=== PATIENT | male | born 1960 | race Caucasian/White ===

== ENCOUNTER 2023-04-24 10:00 | Outpatient (AMB) | payer BC, SELFPAY ==
--- NOTE | 2023-04-24 10:05 | A.OFFVIS_ITS ---
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 Pt had a home sleep study done 3 years ago, And was told that he had severe degree of sleep apnea, the AHI was more than 100/hr. He is having difficulty maintaining sleep, non refreshing sleep, lack of energy and daytime sleepiness. He gained about 20 lb since the last sleep study. Sleep questionnaire: Have you ever been diagnosed with a sleep disorder? Yes. Have you ever had a sleep study in the past? Yes, home sleep Have you ever been treated for a sleep disorder? No. Do you take medications for a sleep disorder? No. Do you snore? Yes. Do you wake up gasping at night? No. Do you have episodes of apneas? Yes. If yes, are they witnessed? Yes. Do you have episodes of nocturnal chest pain or dyspnea? No. Do you have difficulty initiating sleep? No. Do you have difficulty maintaining sleep? Yes. Do you wake up tired? Yes. Do you have headaches upon awakening? Yes. Do you wake up with dry mouth or throat? Yes. Do you have GERD? No. Do you have nocturia? Yes. Do you have nocturnal leg cramps? Once in a while. Do you have symptoms of restless legs? No. Do you act out your dreams? No. Sleep hygiene questionnaire: What is your usual sleep routine? Usual bedtime is at 10 pm; Usual wake up time is at 8-10 pm. Do you take naps? No. Is your sleep environment cool, dark, and quiet? Yes. Do you exercise? No. Do you take caffeine or other stimulants? Coffee in the morning, and sometimes evening. Do you use electronics in bed? Yes. What is your work schedule? N/A. Hypersomnolence questionnaire: Do you have daytime tiredness or fatigue? Yes. Do you easily fall asleep when inactive? No. Have you ever had episodes of sudden weakness? No. Have you ever had episodes of sudden weakness associated with strong emotions? No. PFSH Surgical History (Updated 04/24/23 @ 10:12 by Linda Arevalo) H/O ankle fusion Social History (Updated 04/24/23 @ 10:13 by Linda Arevalo) Alcohol intake: never Patient Tobacco Use Status: Never used Tobacco Substance Use Type: Marijuana Review of Systems Const All systems reviewed & are unremarkable except as noted in HPI and below Physical Exam Vital Signs: Last Vital Signs Pulse 66 04/24/23 10:07 BP 124/66 04/24/23 10:07 Pulse Ox 96 04/24/23 10:07 Oxygen Delivery Method Room Air 04/24/23 10:07 BMI result Body Mass Index 45.8 Const General: cooperative Nutritional Appearance: obese Orientation/consciousness: patient oriented x3 Neck Neck: Yes full ROM and Yes supple Resp Effort & Inspection: normal respiratory effort and able to speak in complete sentences Neuro General: patient oriented x3, gait normal and moves all extremities Cranial nerves: Yes CN's II-XII intact bilaterally Cognition (Neuro): normal cognition Gait exam (Neuro): Normal gait present Motor exam (neuro): 5/5 motor strength present throughout, Pronator motor function not present and no tremor noted Psych Appearance: grossly normal Mental Status: mental status grossly normal Speech and movement: Normal speech and movement present Affect: normal affect Attitude: cooperative Assessment & Plan Assessment & Plan (1) Obesity, Class III, BMI 40-49.9 (morbid obesity): Code(s): E66.01 - Morbid (severe) obesity due to excess calories (2) Sleep apnea: Comment: Severe degree of sleep apnea. AHI was more than 100/hr. Code(s): G47.30 - Sleep apnea, unspecified Plan Pt is advised to undergo in lab sleep study to assess for sleep apnea. Will f/u with pt after study to discuss results and appropriate treatment options. Sleep hygiene education provided, limit caffeine intake in the evening and electronic use before bedtime. Pt to call with any worsening concerns or questions. Orders: Orders RT PSG in-lab sleep study 04/24/23 E66.01 - Morbid (severe) obesity due to excess calories, G47.30 - Sleep apnea, unspecified Coding Level of Care Code New Pt Level 3 (68783) Diagnoses Obesity, Class III, BMI 40-49.9 (morbid obesity) E66.01 Sleep apnea G47.30
[2023-04-24 10:07] VITALS: BP 124/66; PULSE 66; O2SAT 96; BMI 45.8
== END 2023-04-24 10:35 | disposition home or self-care (01) ==
PROVIDERS: PCP Physician Assistant Medical; Visit Provider Nurse Practitioner Family
DX: E66.01 Morbid (severe) obesity due to excess calories (principal); G47.30 Sleep apnea, unspecified
CPT/HCPCS: 99203

== ENCOUNTER → 2023-04-24 10:00 | Outpatient (BNVA) | payer BC, SELFPAY | PROVIDERS: PCP Physician Assistant Medical; Visit Provider Nurse Practitioner Family ==

== ENCOUNTER → 2023-05-24 20:30 | Outpatient (REF) | payer MEDICARE, BC, SELFPAY | LOC: HO.SL 20:30 | PROVIDERS: Visit Provider Nurse Practitioner Family | DX: G47.30 Sleep apnea, unspecified (principal); E66.01 Morbid (severe) obesity due to excess calories | CPT/HCPCS: 95810 ==

== ENCOUNTER → 2023-05-25 04:02 | Outpatient (BNV) | payer MEDICARE, BC, SELFPAY | PROVIDERS: Visit Provider Psychiatry & Neurology Neurology | DX: G47.33 Obstructive sleep apnea (adult) (pediatric) (principal) | CPT/HCPCS: 95810 ==

== ENCOUNTER 2024-06-05 12:58 | Outpatient (AMB) | payer MEDICARE, BC, SELFPAY ==
--- NOTE | 2024-06-05 13:06 | MHC.OFFVIS ---
Vital Signs 06/05/24 13:10 Height 6 ft BP 124/82 Blood Pressure Location Lt brachial Position Sitting Intake Visit Reasons: Follow Up Intake Note: Patient last seen 04/2023. Patient presents for a f/u for FATIMAH. Has not been using CPAP, would like to start the process to start using it again. 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 HST 3 years ago, Apr 2023: severe degree of sleep apnea, the AHI >100/hr. He is having difficulty maintaining sleep, non refreshing sleep, lack of energy and daytime sleepiness. 09/2023 - Feb 2024 >4 hours 52/90: Total average 2 hours 32 min Autopap: 8cmH20 - 5cmH20, after titration Max leaks 15.8 - 74.1 : Pressure support 5cmH20 and AHI 27.4 PCP is Gonzalo Mckeon [facility]. He goes to sleep at 10pm and wakes up at 10am to 11am with 2 bathroom breaks. 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 He feels exhausted, has trouble sleeping due to intermittent sleeping patterns and travels. His pressures were titrated twice. His mom passed in February 2024, so he had been travelling to [place] since October 2023 and was not using the machine consistently, as it was difficult to travel with it in his suitcase. He also has trouble with his mask, he needs a bigger mask, as his current one is not a good fit for him. Denies RLS: unable to use a Mouth guard: he does have bruxism. Denies morning headaches. He has GERD and takes his meds PRN. Memory, mood and diet have been stable. He does get very anxious and was started on an SSRI. Sleep hygiene questionnaire: What is your usual sleep routine? Usual bedtime is 10pm. Do you take naps? No. Is your sleep environment cool, dark, and quiet? Yes. Do you exercise? No. Do you take caffeine or other stimulants? Coffee in the morning, and sometimes evening. Do you use electronics in bed? Yes. What is your work schedule? N/A. Hypersomnolence questionnaire: Do you have daytime tiredness or fatigue? Yes. Do you easily fall asleep when inactive? No. Have you ever had episodes of sudden weakness? No. Have you ever had episodes of sudden weakness associated with strong emotions? No. PFSH Surgical History H/O ankle fusion Social History Alcohol intake: never Patient Tobacco Use Status: Never used Tobacco Substance Use Type: Marijuana Review of Systems Const All systems reviewed & are unremarkable except as noted in HPI and below Physical Exam Vital Signs: Last Vital Signs BP 124/82 06/05/24 13:10 Const General: cooperative, comfortable and no acute distress Nutritional Appearance: average body habitus Orientation/consciousness: patient oriented x3 Eyes Pupils: Equal, round and reactive pupils present Neck Neck: Yes full ROM and Yes supple Resp Effort & Inspection: normal respiratory effort and able to speak in complete sentences Neuro General: patient oriented x3 and moves all extremities Cranial nerves: Yes CN's II-XII intact bilaterally, Yes Facial sensation intact/muscles of mastication intact, Yes Equal, round and reactive pupils present, Yes Normal accommodation reflex present, Yes Bilaterally intact EOM present, Yes Nystagmus not present, Yes Normal facial strength present, Yes Midline tongue present, Yes Ability to bilaterally rotate head present and Yes Ability to bilaterally elevate shoulders present Cognition (Neuro): normal cognition Gait exam (Neuro): Normal gait present Motor exam (neuro): 5/5 motor strength present throughout and Normal motor muscle tone present throughout Deep tendon reflexes (DTR's): Right triceps reflex intensity grade: 2+, Left triceps reflex intensity grade: 2+, Rt Biceps (C5, C6): 2+, Left biceps reflex intensity grade: 2+, Right brachioradialis reflex intensity grade: 2+, Left brachioradialis reflex intensity grade: 2+, Right patellar reflex intensity grade: 2+, Left patellar reflex intensity grade: 2+, Right ankle reflex intensity grade: 2+ and Left ankle reflex intensity grade: 2+ Psych Appearance: grossly normal Speech and movement: Normal speech and movement present Affect: normal affect Attitude: cooperative Thought process: Normal thought process present Thought content: Normal thought content present Insight: Good insight present (Psych) Judgement: Good judgement present (Psych) Results Reviewed Results Reviewed: Requested Records Labs from [facility] 09/2023 - Feb 2024 >4 hours 52/90: Total average 2 hours 32 min Autopap: 8cmH20 - 5cmH20, after titration Max leaks 15.8 - 74.1 : Pressure support 5cmH20 and AHI 27.4 Assessment & Plan Assessment & Plan (1) Obesity, Class III, BMI 40-49.9 (morbid obesity): Code(s): E66.01 - Morbid (severe) obesity due to excess calories Category: Medical (2) Sleep apnea: Comment: Severe degree of sleep apnea. AHI was more than 100/hr. Code(s): G47.30 - Sleep apnea, unspecified Category: Medical Qualifiers: Sleep apnea type: unspecified type Qualified Code(s): G47.30 - Sleep apnea, unspecified (3) Fatigue due to sleep pattern disturbance: Code(s): R53.83 - Other fatigue; G47.9 - Sleep disorder, unspecified Category: Medical Plan FATIMAH -Pt will schedule with [facility] for a mask fitting, as he needs a bigger mask. HTN -Will manage BP closely, and start using his machine daily. BMI is elevated will discuss at next visit: Weight management and nutritional counseling with meal prep. -We discussed the co-morbidities resulting from lack of sleep, and the stress on the heart daily at night. #1 modifiable RF to prevent CV events is HTN. -Sleep hygiene education provided, dark and cool environment, no devices in bed, may use red-light therapy in bed, may read to help fall asleep, limit fluids and caffeine intake in the evenings 2 hours prior to bed. -Notes and Labs from PCP at [facility] Gonzalo Mckeon -F/U in 3 months for compliance. Coding Level of Care Code Est Pt Level 3 (33761) Diagnoses Obesity, Class III, BMI 40-49.9 (morbid obesity) E66.01 Sleep apnea, unspecified type G47.30 Sleep apnea type: unspecified type Fatigue due to sleep pattern disturbance R53.83; G47.9 Time Spent (min) 20 Comment Worsening Apnea not measurable
[2024-06-05 13:10] VITALS: BP 124/82
--- OUTSIDE RECORDS SUMMARY | 2024-06-05 15:18 | XMS_ITS | Data Portability ---
Author Organization [facility], Main Office Address [address] [facility] [address] [place] [id number] Care Team Providers Care Business Strategist Name Role Phone SHANTELL CRAWFORD Desk Top Publisher [phone] KINGS CARDOSO Primary Care Provider CHELO CARDOSO Referring Provider Assessment Encounter Date Assessment Date Assessment LastModified by Organization Details LastModified Time 01/31/2021 01/31/2021 No medical contraindications to proposed procedure. Stephanie Perioperative Cardiac Risk was calculated and the risk for perioperative HI is <1%. May proceed to surgery as planned. [email or web address] Not available 01/31/2021 15:16:28 08/10/2023 08/10/2023 Discussed with patient the signs/symptoms warranted for a return to office visit and/or an ER visit. Patient understood and agreed with the plan. [email or web address] Not available 08/10/2023 13:57:18 Plan of Treatment Reminders Order Date Submit Date Provider Last Modified By Organization Details Last Modified Time Details Appointments None recorde d. Lab HbA1c (hemogl obin A1c), blood 2020 021 SHAHEEN [facility], [address], [place], [address], 20:17:16 BMP, serum or plasma 2020 021 SHAHEEN [facility], [address], [place], [address], 21:08:24 HbA1c (hemogl obin A1c), blood 2021 022 [email or web address] [facility], [address], [address], [place], [address], 3 12:49:47 CMP, serum or plasma 2021 022 SHAHEEN [facility], [address], [address], [place], [address], 3 18:30:08 TSH, serum or plasma 2021 022 SHAHEEN [facility], [address], [place], [address], 3 18:33:37 lipid panel, serum 2021 022 SHAHEEN [facility], [address], [place], [address], 3 18:30:09 HbA1c (hemogl obin A1c), blood 2023 024 [email or web address] [facility], [address], [address], [place], [address], 4 08:45:45 CMP, serum or plasma 2023 024 SHAHEEN [facility], [address], [place], [address], 4 14:01:48 urinaly sis, dipstic k 2023 024 SHAHEEN In-Office Order, Internal Use Only DO Not Attach Compendium DO Not Attach Compendium, Do Not Delete/merge, [id number] 4 14:04:31 culture , urine 2023 024 SHAHEEN [facility], [address], [place], [address], 4 12:06:52 urinaly sis, complet e 2023 024 SHAHEEN [facility], [address] [facility], [facility] [address], [place], [address], 4 12:06:51 HbA1c (hemogl obin A1c), blood 2023 024 [email or web address], [address] [place] [address], [facility] [address], [place], [address], 5 13:41:15 TSH, ultra-s ensitiv e, serum 2023 024 [facility], [facility] [address], [place], [address], 4 14:01:59 CMP, serum or plasma 2023 024 [facility], [address] [facility], [facility] [address], [place], [address], 4 14:02:00 CBC w/ auto diff 2023 024 [facility], [facility] [address], [place], [address], 4 14:02:00 lipid panel, serum 2023 024 [facility], [facility] [address], [place], [address], 4 14:02:00 Referral nutriti onist/d ietitia n referra l 2022 023 [email or web address] Not available 3 09:10:53 nutriti onist/d ietitia n referra l 2023 024 Not available 4 14:10:56 Procedures None recorde d. Surgeries None recorde d. 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 and to monitor dietary sodium. Will monitor home blood pressures and bring readings to appointments. Patient preferences and goals incorporated in plan and updated/modified as needed to reflect progress toward goal. 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 and to monitor dietary sodium. Will monitor home blood pressures and bring readings to appointments. Patient preferences and goals incorporated in plan and updated/modified as needed to reflect progress toward goal.Pt advised and agrees to work on self-monitoring behaviors; begin an appropriate diet for weight loss (such as a low carbohydrate diet), to do moderate exercise (such as walking) for approximately 150 minutes per week; and to identify desirable and timely rewards that will reinforce achievement of specific weight loss goals. 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 goal of Blood Pressure 140 / 90 Not available Not available Not available USP goal of Exercise level Not available Not available Not available USP goal of Tobacco Smoking Status Not available Not available Not available USP goal of Excess Body Weight Loss % 5 Not available Not available Not available Ongoing of LDL Direct yearly Not available Not available Not available Ongoing of LDL Direct <100 Not available Not available Not available Pt advised and agrees to eat a low salt low fat diet; to do moderate exercise (such as walking) 150 minutes per week; to limit alcohol intake (goal of 2 drinks per day or less for men or 1 for woman). and to monitor dietary sodium. Will monitor home blood pressures and bring readings to appointments. Patient preferences and goals incorporated in plan and updated/modified as needed to reflect progress toward goal.Pt agrees to follow low fat diet, avoid saturated fats , decrease carbohydrate intake to 45 - 50 gm per meal , pt agrees to develop a regular pattern of exercise such as walking 30 minutes a day 3 times a week, Pt will keep a record of exercise and activity level Patient preferences and goals incorporated in plan and updated/modified as needed to reflect progress toward goal.Pt advised and agrees to work on self-monitoring behaviors; begin an appropriate diet for weight loss (such as a low carbohydrate diet), to do moderate exercise (such as walking) for approximately 150 minutes per week; and to identify desirable and timely rewards that will reinforce achievement of specific weight loss goals. pmadden Not available 11/05/2023 13:59:49 Patient Instructions Encounter Date Encounter Id Patient Instructions Last Modified By Organization Details Last Modified Time 01/31/2021 [id number] Medications (OTC , herbal therapies, supplements) reviewed and reconciled with patient and or caregiver, including potential side effects, drug interactions, instructions, and the consequences of not taking medication. Reviewed potential barriers to medication adherence, such as side effects from medication or cost of medication. pmadden Not available 01/31/2021 15:03:38 03/13/2022 [id number] Medications (OTC , herbal therapies, supplements) reviewed and reconciled with patient and or caregiver, including potential side effects, drug interactions, instructions, and the consequences of not taking medication. Reviewed potential barriers to medication adherence, such as side effects from medication or cost of medication. pmadden Not available 03/13/2022 14:02:52 11/02/2022 [id number] starting a weigh t loss plan: care instructions pmadden Not available 11/02/2022 15:29:56 Nutrition Referral and Weight Management Follow-up Information pmadden Not available 11/02/2022 15:29:55 A healthy lifestyle: care instructions pmadden Not available 11/02/2022 15:29:56 Well Visit 50 to 65: Care Instructions pmadden Not available 11/02/2022 15:29:56 Medications (OTC , herbal therapies, supplements) reviewed and reconciled with patient and or caregiver, including potential side effects, drug interactions, instructions, and the consequences of not taking medication. Reviewed potential barriers to medication adherence, such as side effects from medication or cost of medication. pmadden Not available 11/02/2022 15:26:48 11/05/2023 [id number] starting a weigh t loss plan: care instructions pmadden Not available 11/05/2023 14:01:54 Nutrition Referral and Weight Management Follow-up Information pmadden Not available 11/05/2023 14:01:54 Well Visit 50 to 65: Care Instructions pmadden Not available 11/05/2023 14:01:54 Medications (OTC , herbal therapies, supplements) reviewed and reconciled with patient and or caregiver, including potential side effects, drug interactions, instructions, and the consequences of not taking medication. Reviewed potential barriers to medication adherence, such as side effects from medication or cost of medication. 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 DIAGN OSTIC USE: The Ameri can Diabe prieto Assoc iatio n (ADA) and the World Healt h Organ izati on (WHO) recom mend the use of HbA1c to diagn ose diabe prieto using a thres hold of 6.5%. Patie nts who have an HbA1c betwe en 5.7% and 6.4% are consi dered at incre ased risk for devel oping diabe prieto in the vladislav RUTLEDGE ON: False ly low HbA1c resul ts may be obser sweta in patie nts with hemol ytic anemi a, homoz ygous forms of abnor mal hemog lobin (e.g. SS, CC, SC), pregn wilma, recen t blood loss or hemog lobin F great er than 7%. Fruct osami ne may be used as an alter syed test in these cases . REFER ENCE: ADA: Stand ards of Medic al Care in Diabe prieto 2019, The Journ al of Clini lauren and Appli ed Resea [facility] and Educa tion Volum e 43, Suppl ement 1 Not Available [facility] [address] [place], [address], 01/31/2021 20:17:16 02/01/20 21 01/31/2021 BASIC METAB OLIC PANEL glucose 105 mg/dL (70-99 ) high Not Available [facility] [address] [place], [address], 01/31/2021 21:08:24 02/01/20 21 01/31/2021 BASIC METAB OLIC PANEL BUN 21 mg/dL (6-20) high Not Available [facility] [address] [place], [address], 01/31/2021 21:08:24 02/01/20 21 01/31/2021 BASIC METAB OLIC PANEL creatinine 0.7 mg/dL (0.7-1 .2) Not Available [facility] [address], [address], 01/31/2021 21:08:24 02/01/20 21 01/31/2021 BASIC METAB OLIC PANEL sodium 141 mmol/ L (133-1 45) Not Available [facility] [address], [address], 01/31/2021 21:08:24 02/01/20 21 01/31/2021 BASIC METAB OLIC PANEL potassium 4.2 mmol/ L (3.6-5 .2) Not Available [facility] [address], [address], 01/31/2021 21:08:24 02/01/20 21 01/31/2021 BASIC METAB OLIC PANEL chloride 99 mmol/ L (98-10 7) Not Available [facility] [address], [address], 01/31/2021 21:08:24 02/01/20 21 01/31/2021 BASIC METAB OLIC PANEL bicarbonate 31 mmol/ L (22-29 ) high Not Available [facility] [address], [address], 01/31/2021 21:08:24 02/01/20 21 01/31/2021 BASIC METAB OLIC PANEL anion gap 11 (4-17) Not Available [facility] [address], [address], 01/31/2021 21:08:24 02/01/20 21 01/31/2021 BASIC METAB OLIC PANEL calcium 10.5 mg/dL (8.6-1 0.5) Not Available [facility] [address], [address], 01/31/2021 21:08:24 02/01/20 21 01/31/2021 BASIC METAB OLIC PANEL est GFR non 107 mL/mi n/1.7 3_M2 Creat inine based estim ated glome rular filtr ation rate (eGFR ) is calcu lated using the Chron ic Kidne y Disea se Epide miolo gy Colla borat ion (CKD- EPI). The CKD-E PI creat inine equat ion has not been valid ated in child ck (<18 years ), pregn ant women or in some racia l or ethni c subgr oups other than Cauca sians and Afric an Ameri cans. Not Available [facility] [address] [place], [address], 01/31/2021 21:08:24 02/01/20 21 01/31/2021 BASIC METAB OLIC PANEL est GFR 124 mL/mi n/1.7 3_M2 Creat inine based estim ated glome rular filtr ation rate (eGFR ) is calcu lated using the Chron ic Kidne y Disea se Epide miolo gy Colla borat ion (CKD- EPI). The CKD-E PI creat inine equat ion has not been valid ated in child ck (<18 years ), pregn ant women or in some racia l or ethni c subgr oups other than Cauca sians and Afric an Ameri cans. Not Available [facility] [address] [place], [address], 01/31/2021 21:08:24 10/20/19 23 10/19/2022 COMPR EHENS KUNAL METAB OLIC PANL glucose 104 mg/dL (70-99 ) high Not Available [facility] [address] [place], [address], 10/19/2022 18:30:08 10/20/19 23 10/19/2022 COMPR EHENS KUNAL METAB OLIC PANL BUN 19 mg/dL (8-23) Not Available [facility] [address], [address], 10/19/2022 18:30:08 10/20/19 23 10/19/2022 COMPR EHENS KUNAL METAB OLIC PANL creatinine 0.7 mg/dL (0.7-1 .2) Not Available [facility] [address], [address], 10/19/2022 18:30:08 10/20/19 23 10/19/2022 COMPR EHENS KUNAL METAB OLIC PANL sodium 143 mmol/ L (133-1 45) Not Available [facility] [address], [address], 10/19/2022 18:30:08 10/20/19 23 10/19/2022 COMPR EHENS KUNAL METAB OLIC PANL potassium 4.5 mmol/ L (3.6-5 .2) Not Available [facility] [address], [address], 10/19/2022 18:30:08 10/20/19 23 10/19/2022 COMPR EHENS KUNAL METAB OLIC PANL chloride 102 mmol/ L (98-10 7) Not Available [facility] [address], [address], 10/19/2022 18:30:08 10/20/19 23 10/19/2022 COMPR EHENS KUNAL METAB OLIC PANL bicarbonate 32 mmol/ L (22-29 ) high Not Available [facility] [address], [address], 10/19/2022 18:30:08 10/20/19 23 10/19/2022 COMPR EHENS KUNAL METAB OLIC PANL anion gap 9 (4-17) Not Available [facility] [address] [place], [address], 10/19/2022 18:30:08 10/20/19 23 10/19/2022 COMPR EHENS KUNAL METAB OLIC PANL albumin 4.4 gm/dL (3.4-4 .8) Not Available [facility] [address] [place], [address], 10/19/2022 18:30:08 10/20/19 23 10/19/2022 COMPR EHENS KUNAL METAB OLIC PANL calcium 9.7 mg/dL (8.6-1 0.5) Not Available [facility] [address] [place], [address], 10/19/2022 18:30:08 10/20/19 23 10/19/2022 COMPR EHENS KUNAL METAB OLIC PANL bilirubin,to kishor 0.2 mg/dL (0-1.2 ) Not Available [facility] [address], [address], 10/19/2022 18:30:08 10/20/19 23 10/19/2022 COMPR EHENS KUNAL METAB OLIC PANL total protein 6.9 gm/dL (6.2-8 .2) Not Available [facility] [address], [address], 10/19/2022 18:30:08 10/20/19 23 10/19/2022 COMPR EHENS KUNAL METAB OLIC PANL Ag ratio 1.8 Not Available [facility] [address], [address], 10/19/2022 18:30:08 10/20/19 23 10/19/2022 COMPR EHENS KUNAL METAB OLIC PANL AST 33 U/L (0-40) Not Available [facility] [address], [address], 10/19/2022 18:30:08 10/20/19 23 10/19/2022 COMPR EHENS KUNAL METAB OLIC PANL alk phos 98 U/L (40-12 9) Not Available [facility] [address], [address], 10/19/2022 18:30:08 10/20/19 23 10/19/2022 COMPR EHENS KUNAL METAB OLIC PANL ALT 28 U/L (0-41) Not Available [facility] [address], [address], 10/19/2022 18:30:08 10/20/19 23 10/19/2022 COMPR EHENS KNUAL METAB OLIC PANL estimated GFR creatinine 106 mL/mi n/1.7 3_M2 Creat inine based estim ated glome rular filtr ation (eGFR ) in adult s is calcu lated using the Natio nal Kidne y Found ation recom regi d 2020 CKD-E PI equat ion. Estim ates GFR from serum creat inine , age and sex. Not Available [facility] [address], [address], 10/19/2022 18:30:08 10/20/1910/19/2022 LIPID PANEL cholesterol, total 155 mg/dL (<200) Not Available [facility] [address], [address], 10/19/2022 18:30:10/20/19 23 10/19/2022 LIPID PANEL triglyceride 131 mg/dL (<150) Not Available [facility] [address], [address], 10/19/2022 18:30:10/20/1910/19/2022 LIPID PANEL HDL chol 56 mg/dL (>39) Not Available [facility] [address] [place], [address], 10/19/2022 18:30:09 10/20/19 23 10/19/2022 LIPID PANEL LDL cholesterol, calculated 73 mg/dL (0-130 ) Not Available [facility] [address], [address], 10/19/2022 18:30:10/20/1910/19/2022 LIPID PANEL non HDL cholesterol (calc) 99 mg/dL (<160) Not Available [facility] [address], [address], 10/19/2022 18:30:09 10/20/1910/19/2022 TSH WITH REFLE X TO FT4 TSH 3.30 uIU/m L (0.4-4 .2) Not Available [facility] [address] [place], [address], 10/19/2022 18:33:37 10/20/1910/19/2022 HEMOG LOBIN A1C hemoglobin A1C 5.5 % (4.0-5 .6) MONIT ORING : In known diabe tic patie nts, hemog lobin A1c targe ts shoul d be discu ssed with healt h care provi adelaida. DIAGN OSTIC USE: The Ameri can Diabe prieto Assoc iatio n (ADA) and the World Healt h Organ izati on (WHO) recom mend the use of HbA1c to diagn ose diabe prieto using a thres hold of 6.5%. Patie nts who have an HbA1c betwe en 5.7% and 6.4% are consi dered at incre ased risk for devel oping diabe prieto in the futur e. CAUTI ON: False ly low HbA1c resul ts may be obser sweta in patie nts with hemol ytic anemi a, homoz ygous forms of abnor mal hemog lobin (e.g. SS, CC, SC), pregn wilma, recen t blood loss or hemog lobin F great er than 7%. Fruct osami ne may be used as an alter syed test in these cases . REFER ENCE: ADA: Stand ards of Medic al Care in Diabe prieto 2019, The Journ al of Clini lauren and Appli ed Resea rch and Educa tion Volum e 43, Suppl ement 1 Not Available [facility] [address], [place], [address], 10/19/2022 18:59:02 08/10/19 24 08/11/2023 URINA LYSIS , COMPL ETE specific gravity 1.020 1.005- 1.030 Not Available [facility] ([facility]) [address] [place], [address], 08/16/2023 12:06:51 08/10/19 24 08/11/2023 URINA LYSIS , COMPL ETE pH 7.5 5.0-7. 5 Not Available [facility] ([facility]) [address] [place], [address], 08/16/2023 12:06:51 08/10/19 24 08/11/2023 URINA LYSIS , COMPL ETE urine-color YELLOW yellow Not Available [facility] ([facility]) [address] [place], [address], 08/16/2023 12:06:51 08/10/19 24 08/11/2023 URINA LYSIS , COMPL ETE appearance CLEAR clear Not Available [facility] ([facility]) [address] [facility], [place], [address], 08/16/2023 12:06:51 08/10/19 24 08/11/2023 URINA LYSIS , COMPL ETE WBC esterase TRACE negati ve abnormal Not Available [facility] ([facility]) [address] [facility], [place], [address], 08/16/2023 12:06:51 08/10/19 24 08/11/2023 URINA LYSIS , COMPL ETE protein TRACE negati ve/tra ce Not Available [facility] ([facility]) [address] [facility], [place], [address], 08/16/2023 12:06:51 08/10/19 24 08/11/2023 URINA LYSIS , COMPL ETE glucose NEGATI VE negati ve Not Available [facility] ([facility]) [address] [facility], [place], [address], 08/16/2023 12:06:51 08/10/19 24 08/11/2023 URINA LYSIS , COMPL ETE ketones NEGATI VE negati ve Not Available [facility] ([facility]) [address] [facility], [place], [address], 08/16/2023 12:06:51 08/10/19 24 08/11/2023 URINA LYSIS , COMPL ETE occult blood NEGATI VE negati ve Not Available [facility] ([facility]) [address] [place], [address], 08/16/2023 12:06:51 08/10/19 24 08/11/2023 URINA LYSIS , COMPL ETE bilirubin NEGATI VE negati ve Not Available [facility] ([facility]) [address] [place], [address], 08/16/2023 12:06:51 08/10/19 24 08/11/2023 URINA LYSIS , COMPL ETE urobilinogen ,semi-qn 1.0 mg/dL 0.2-1. 0 Not Available [facility] ([facility]) [address] [facility], [place], [address], 08/16/2023 12:06:51 08/10/19 24 08/11/2023 URINA LYSIS , COMPL ETE nitrite, urine NEGATI VE negati ve Not Available [facility] ([facility]) [address] [place], [address], 08/16/2023 12:06:51 08/10/19 24 08/11/2023 URINA LYSIS , COMPL ETE microscopic examination SEE BELOW: Micro scopi c was indic ated and was perfo rmed. Not Available [facility] ([facility]) [address] [facility], [place], [address], 08/16/2023 12:06:51 08/10/19 24 08/11/2023 URINA LYSIS , COMPL ETE WBC 11-30 /hpf 0 - 5 abnormal Not Available [facility] ([facility]) [address] [place], [address], 08/16/2023 12:06:51 08/10/19 24 08/11/2023 URINA LYSIS , COMPL ETE RBC 0-2 /hpf 0 - 2 Not Available [facility] ([facility]) [address] [place], [address], 08/16/2023 12:06:51 08/10/19 24 08/11/2023 URINA LYSIS , COMPL ETE epithelial cells (non renal) NONE SEEN /hpf 0 - 10 Not Available [facility] ([facility]) [address] [place], [address], 08/16/2023 12:06:51 08/10/19 24 08/11/2023 URINA LYSIS , COMPL ETE epithelial cells (renal) 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 Not Available [facility] ([facility]) [address] [facility], [place], [address], 08/16/2023 12:06:51 08/10/19 24 08/11/2023 URINA LYSIS , COMPL ETE casts NONE SEEN /lpf none seen Not Available [facility] ([facility]) [address] [facility], [place], [address], 08/16/2023 12:06:51 08/10/19 24 08/11/2023 URINA LYSIS , COMPL ETE cast type 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 Not Available [facility] ([facility]) [address] [facility], [place], [address], 08/16/2023 12:06:51 08/10/19 24 08/11/2023 URINA LYSIS , COMPL ETE crystals 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 Not Available [facility] ([facility]) [address] [facility], [place], [address], 08/16/2023 12:06:51 08/10/19 24 08/11/2023 URINA LYSIS , COMPL ETE crystal type 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 Not Available [facility] ([facility]) [address] [facility], [place], [address], 08/16/2023 12:06:51 08/10/19 24 08/11/2023 URINA LYSIS , COMPL ETE mucus threads 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 Not Available [facility] ([facility]) [address] [facility], [place], [address], 08/16/2023 12:06:51 08/10/19 24 08/11/2023 URINA LYSIS , COMPL ETE bacteria MANY none seen/f ew abnormal Not Available [facility] ([facility]) [address] [facility], [place], [address], 08/16/2023 12:06:51 08/10/19 24 08/11/2023 URINA LYSIS , COMPL ETE yeast 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 Not Available [facility] Services Lab) [address] [facility], [place], [address], 08/16/2023 12:06:51 08/10/19 24 08/11/2023 URINA LYSIS , COMPL ETE trichomonas 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 Not Available [facility] ([facility]) [address] [place], [address], 08/16/2023 12:06:51 08/10/19 24 08/11/2023 URINA LYSIS , COMPL ETE comment 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 Not Available [facility] ([facility]) [address] [place], [address], 08/16/2023 12:06:51 08/10/19 24 08/11/2023 URINA LYSIS , COMPL ETE microscopic examination 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 Not Available [facility] ([facility]) [address] [place], [address], 08/16/2023 12:06:51 08/10/19 24 08/16/2023 URINE CULTU RE, ROUTI NE urine culture, routine FINAL REPORT abnormal Not Available [facility] ([facility]) [address] [place], [address], 08/16/2023 12:06:52 08/10/19 24 08/16/2023 URINE CULTU RE, ROUTI NE result 1 FLACO SAM II abnormal Great er than 100,0 00 colon y formi ng units per mL Not Available [facility] ([facility]) [address] [place], [address], 08/16/2023 12:06:52 08/10/19 24 08/16/2023 URINE CULTU RE, ROUTI NE antimicrobia l susceptibili ty COMMEN T S = Susce ptibl e; I = Inter media te; R = Resis tant P = Posit kunal; N = Negat kunal MICS are expre ssed in micro grams per mL Antib iotic RSLT# 1 RSLT# 2 RSLT# 3 RSLT# 4 Amoxi cilli n/Cla vulan ic Acid R Ampic illin R Cefaz zora R Cefep poly S Ceftr iaxon e S Cefur oxime R Cipro floxa yonny S Ertap enem S Genta micin S Imipe nem I Levof loxac in S Merop enem S Nitro furan toin R Piper acill in/Ta zobac romero S Tetra cycli ne R Tobra mycin S Trime thopr im/Goode lfa S Not Available [facility] ([facility]) [address] [facility], [place], [address], 08/16/2023 12:06:52 08/10/19 24 08/14/2023 NO SPECI MEN RECEI SWETA no specimen received COMMEN T Test not perfo rmed. No speci men recei sweta. TEST: [id number] 0 Comp. Metab olic Panel (54) 17945 3 Hemog lobin A1c Not Available [facility] ([facility]) [address] [facility], [place], [address], 08/16/2023 12:06:53 08/10/19 24 08/10/2023 urina lysis , dipst ick Leukocytes Negati ve Not Available In-Office Order Internal Use Only DO Not Attach Compendium DO Not Attach Compendium, Do Not Delete/merge, 08/10/2023 12:10:07 08/10/19 24 08/10/2023 urina lysis , dipst ick Nitritie negati ve Not Available In-Office Order Internal Use Only DO Not Attach Compendium DO Not Attach Compendium, Do Not Delete/merge, 08/10/2023 12:10:07 08/10/19 24 08/10/2023 urina lysis , dipst ick Urobilinogen .2 Not Available In-Of fice Order Internal Use Only DO Not Attach Compendium DO Not Attach Compendium, Do Not Delete/merge, 08/10/2023 12:10:07 08/10/19 24 08/10/2023 urina lysis , dipst ick Protein Trace Not Available In-Office Order Internal Use Only DO Not Attach Compendium DO Not Attach Compendium, Do Not Delete/merge, 08/10/2023 12:10:07 08/10/19 24 08/10/2023 urina lysis , dipst ick pH 7.5 Not Available In-Office Order Internal Use Only DO Not Attach Compendium DO Not Attach Compendium, Do Not Delete/merge, 08/10/2023 12:10:07 08/10/19 24 08/10/2023 urina lysis , dipst ick Blood Negati ve Not Available In-Office Order Internal Use Only DO Not Attach Compendium DO Not Attach Compendium, Do Not Delete/merge, 08/10/2023 12:10:07 08/10/19 24 08/10/2023 urina lysis , dipst ick Specific Stedman 1.010 Not Available In-Off ice Order Internal Use Only DO Not Attach Compendium DO Not Attach Compendium, Do Not Delete/merge, 08/10/2023 12:10:07 08/10/19 24 08/10/2023 urina lysis , dipst ick Ketone Negati ve Not Available In-Office Order Internal Use Only DO Not Attach Compendium DO Not Attach Compendium, Do Not Delete/merge, 08/10/2023 12:10:07 08/10/19 24 08/10/2023 urina lysis , dipst ick Bilirubin Negati ve Not Available In-Office Order Internal Use Only DO Not Attach Compendium DO Not Attach Compendium, Do Not Delete/merge, 08/10/2023 12:10:07 08/10/19 24 08/10/2023 urina lysis , dipst ick Glucose Negati ve Not Available In-Office Order Internal Use Only DO Not Attach Compendium DO Not Attach Compendium, Do Not Delete/merge, 08/10/2023 12:10:07 08/10/19 24 08/10/2023 urina lysis , dipst ick Appearance Cloudy Not Available In-Offi ce Order Internal Use Only DO Not Attach Compendium DO Not Attach Compendium, Do Not Delete/merge, 08/10/2023 12:10:07 08/10/19 24 08/10/2023 urina lysis , dipst ick Color Yellow Not Available In-Office Order Internal Use Only DO Not Attach Compendium DO Not Attach Compendium, Do Not Delete/merge, [id number] 08/10/2023 12:10:07 02/01/20 21 01/31/2021 elect rocar diogr am No observ ation record ed. [email or web address] In-Office Order Internal Use Only DO Not Attach Compendium DO Not Attach Compendium, Do Not Delete/merge, [id number] 03/13/2022 14:25:40 02/01/20 21 01/31/2021 elect rocar diogr am No observ ation record ed. [email or web address] Not Available 2020 15:05:45 02/01/20 21 elect rocar diogr am No observ ation record ed. [email or web address] Not Available 2020 15:05:45 Result Notes None recorded. Problems Name Problem SNOMED Code Status Onset Date Resolution Date Notes Provider Name and Address Organization Details Recorded Time Right lower quadrant pain 092359984 Completed 201112/18/2013 RECORDED 04/09/20 12 1:57PM BY STEFANIA NEWELL MA, ANNOTATI ON/ADDEN DUM Not Available [facility] 4 11:59:01 Acute sinusiti s 25457681 Completed 200912/18/2013 RECORDED 06/08/19 10 6:56AM BY DILLAN JAMISON MD, ANNOTATI ON/ADDEN DUM Not Available [facility] 4 11:59:01 Chest pain 88840154 Completed 201012/18/2013 STORY: SEEMS MUSCULOS KELETAL; RECORDED 02/06/20 11 7:43PM BY DILLAN JAMISON MD, ANNOTATI ON/ADDEN DUM Not Available [facility] 4 11:59:01 Chronic sinusiti s 92152276 Completed 201112/18/2013 RECORDED 01/04/20 12 2:55PM BY STEFANIA NEWELL MA, ANNOTATI ON/ADDEN DUM Not Available [facility] 4 11:59:01 Diarrhea 29726737 Completed 201212/18/2013 RECORDED 02/01/20 13 1:07PM BY STEFANIA NEWELL MA, LEA ON/ADDEN DUM Not Available [facility] 4 11:59:01 Liver function tests outside referenc e range 638909710 Completed 201112/18/2013 RECORDED 01/04/20 12 2:55PM BY STEFANIA NEWELL MA, LEA ON/ADDEN DUM Not Available [facility] 4 11:59:01 Follow-u p encounte r Completed 201212/18/2013 RECORDED 11/12/19 13 10:15AM BY STEFANIA NEWELL MA, LEA ON/ADDEN DUM Not Available [facility] 4 11:59:01 Open wound of finger 776482620 Completed 201212/18/2013 RECORDED 11/12/19 13 10:15AM BY STEFANIA NEWELL MA, LEA ON/ADDEN DUM Not Available [facility] 4 11:59:02 Renewal of prescrip tion Completed 201212/18/2013 RECORDED 08/24/19 13 2:49PM BY STEFANIA NEWELL MA, LEA ON/ADDEN DUM Not Available [facility] 4 11:59:02 Influenz a vaccine needed 63932489161 06 Completed 201012/18/2013 DATE: 02/04/20 11; RECORDED 04/09/20 12 1:57PM BY STEFANIA NEWELL MA, LEA ON/ADDEN DUM Not Available [facility] 4 11:59:02 Nerve, plexus and root disorder s Completed 201112/18/2013 RECORDED 04/09/20 12 1:57PM BY STEFANIA NEWELL MA, LEA ON/ADDEN DUM Not Available [facility] 4 11:59:02 Inflamma tion of sacroili ac joint 62868671 Completed 201112/18/2013 RECORDED 01/04/20 12 2:55PM BY STEFANIA NEWELL MA, ANNOTATI ON/ADDEN DUM Not Available [facility] 4 11:59:02 Administ ration of diphther ia and tetanus vaccine Completed 201212/18/2013 RECORDED 07/03/19 13 3:07PM BY STEFANIA NEWELL MA, ANNOTATI ON/ADDEN DUM Not Available [facility] 4 11:59:02 Periapic al abscess without sinus tract Completed 201212/18/2013 RECORDED 01/08/20 13 2:16PM BY STEFANIA NEWELL MA, ANNOTATI ON/ADDEN DUM Not Available [facility] 4 11:59:03 Urinary system finding 775606062 Completed 201012/18/2013 RECORDED 02/06/20 11 7:43PM BY DILLAN JAMISON MD, ANNOTATI ON/ADDEN DUM Not Available [facility] 4 11:59:03 Right lower quadrant pain 032549648 Completed 201112/19/2013 RECORDED 04/09/20 12 1:57PM BY STEFANIA NEWELL MA, ANNOTATI ON/ADDEN DUM Not Available [facility] 4 03:27:50 Acute sinusiti s 22335870 Completed 200912/19/2013 RECORDED 06/08/19 10 6:56AM BY DILLAN JAMISON MD, ANNOTATI ON/ADDEN DUM Not Available [facility] 4 03:27:50 Chest pain 64219200 Completed 201012/19/2013 STORY: SEEMS MUSCULOS KELETAL; RECORDED 02/06/20 11 7:43PM BY DILLAN JAMISON MD, ANNOTATI ON/ADDEN DUM Not Available [facility] 4 03:27:50 Chronic sinusiti s 00108285 Completed 201112/19/2013 RECORDED 01/04/20 12 2:55PM BY STEFANIA NEWELL MA, ANNOTATI ON/ADDEN DUM Not Available [facility] 4 03:27:50 Diarrhea 83011060 Completed 201212/19/2013 RECORDED 02/01/20 13 1:07PM BY STEFANIA NEWELL MA, LEA ON/ADDEN DUM Not Available [facility] 4 03:27:50 Liver function tests outside referenc e range 792314957 Completed 201112/19/2013 RECORDED 01/04/20 12 2:55PM BY STEFANIA NEWELL MA, LEA ON/ADDEN DUM Not Available [facility] 4 03:27:50 Follow-u p encounte r Completed 201212/19/2013 RECORDED 11/12/19 13 10:15AM BY STEFANIA NEWELL MA, LEA ON/ADDEN DUM Not Available [facility] 4 03:27:50 Open wound of finger 746994808 Completed 201212/19/2013 RECORDED 11/12/19 13 10:15AM BY STEFANIA NEWELL MA, LEA ON/ADDEN DUM Not Available [facility] 4 03:27:51 Renewal of prescrip tion Completed 201212/19/2013 RECORDED 08/24/19 13 2:49PM BY STEFANIA NEWELL MA, LEA ON/ADDEN DUM Not Available [facility] 4 03:27:51 Influenz a vaccine needed 74578578594 06 Completed 201012/19/2013 DATE: 02/04/20 11; RECORDED 04/09/20 12 1:57PM BY STEFANIA NEWELL MA, LEA ON/ADDEN DUM Not Available [facility] 4 03:27:51 Nerve, plexus and root disorder s Completed 201112/19/2013 RECORDED 04/09/20 12 1:57PM BY STEFANIA NEWELL MA, LEA ON/ADDEN DUM Not Available [facility] 4 03:27:51 Inflamma tion of sacroili ac joint 74625098 Completed 201112/19/2013 RECORDED 01/04/20 12 2:55PM BY STEFANIA NEWELL MA, ANNOTATI ON/ADDEN DUM Not Available [facility] 4 03:27:51 Administ ration of diphther ia and tetanus vaccine Completed 201212/19/2013 RECORDED 07/03/19 13 3:07PM BY STEFANIA NEWELL MA, SEVENATI ON/ADDEN DUM Not Available [facility] 4 03:27:51 Periapic al abscess without sinus tract Completed 201212/19/2013 RECORDED 01/08/20 13 2:16PM BY STEFANIA NEWELL MA, ANNOTATI ON/ADDEN DUM Not Available [facility] 4 03:27:51 Urinary system finding 511662775 Completed 201012/19/2013 RECORDED 02/06/20 11 7:43PM BY DILLAN JAMISON MD, ANNOTATI ON/ADDEN DUM Not Available [facility] 4 03:27:51 Hypergly cemia 94630830 Active Not Available [facility] 1 19:08:41 Increase d liver function 98277384 Active Not Available [facility] 1 19:08:41 Impotenc e Active Not Available [facility] 1 19:08:41 Major depressi ve disorder 503815334 Active 2018 Not Available [facility] 1 19:08:41 Obstruct kunal sleep apnea syndrome 49866354 Active 2020 Severe with AHI 68. Home sleep test 08/2020 Dillan Jamison MD [address] [facility] [address], [place], [address] , [facility] [place] [place] 1 16:05:06 Impaired fasting glycemia 386216043 Active 2020 Kings Cardoso PA-C [address], [place], [address] , [facility] [place] 1 15:16:46 Subclini lauren hypothyr oidism 00548360 Active 2021 Kings Cardoso PA-C [address], [place], [address] , [facility] 2 14:23:48 Pain of left ankle joint 08434146233 734431 Active 2022 Kings Cardoso PA-C [address], [place], [address] , [facility] [place] 3 15:31:52 Right lower quadrant pain 835196935 Completed 201111/25/2013 RECORDED 04/09/20 12 1:57PM BY STEFANIA NEWELL MA, ANNOTATI ON/ADDEN DUM Not Available [facility] 4 13:25:56 Acute sinusiti s 30795098 Completed 200911/25/2013 RECORDED 06/08/19 10 6:56AM BY DILLAN JAMISON MD, ANNOTATI ON/ADDEN DUM Not Available [facility] 4 13:25:57 Allergic rhinitis 37635663 Active 2013 Not Available [facility] 1 19:08:41 Adult health examinat ion Completed 201305/12/2016 Stefania chavez MA [facility], [facility] 6 11:21:12 Chest pain 28941435 Completed 201011/25/2013 STORY: SEEMS MUSCULOS KELETAL; RECORDED 02/06/20 11 7:43PM BY DILLAN JAMISON MD, ANNOTATI ON/ADDEN DUM Not Available [facility] 4 13:25:57 Chronic pain syndrome 261252791 Active 2013 Not Available [facility] 1 19:08:41 Chronic sinusiti s 70167675 Completed 201111/25/2013 RECORDED 01/04/20 12 2:55PM BY STEFANIA NEWELL MA, ANNOTATI ON/ADDEN DUM Not Available [facility] 4 13:25:57 Screenin g for malignan t neoplasm of colon Completed 201305/12/2016 [place] - [facility] 6 11:21:22 Diarrhea 52992887 Completed 201211/25/2013 RECORDED 02/01/20 13 1:07PM BY STEFANIA NEWELL MA, ANNOTATI ON/ADDEN DUM Not Available [facility] 4 13:25:57 Psychose xual dysfunct ion associat ed with inhibite d libido 578234020 Active 2013 Not Available [facility] 1 19:08:41 Liver function tests outside referenc e range 796542430 Completed 201111/25/2013 RECORDED 01/04/20 12 2:55PM BY STEFANIA NEWELL MA, ANNOTATI ON/ADDEN DUM Not Available [facility] 4 13:25:57 Follow-u p encounte r Completed 201211/25/2013 RECORDED 11/12/19 13 10:15AM BY STEFANIA NEWELL MA, ANNOTATI ON/ADDEN DUM Not Available [facility] 4 13:25:57 Essentia l hyperten yasmine 10372174 Active 2013 Not Available [facility] 1 19:08:41 Essentia l hyperten yasmine 25496967 Completed 201011/25/2013 RECORDED 05/20/19 11 3:31PM BY STEFANIA NEWELL MA, ANNOTATI ON/ADDEN DUM [place] - [facility] 6 11:21:35 Malaise and fatigue 256586012 Active 2013 Not Available [facility] 1 19:08:41 Malaise and fatigue 801099922 Completed 201011/25/2013 IMPRESSI ON: SUSPECT THIS IS RELATED TO RECENT VIRAL ILLNESS BUT WILL CHECK SOME LABS; RECORDED 02/06/20 11 7:43PM BY DILLAN JAMISON MD, ANNOTATI ON/ADDEN DUM [place] - [facility] 6 11:21:15 Gastroes ophageal reflux disease 325312000 Active 2013 Not Available [facility] 1 19:08:41 Hyperlip idemia 67715789 Active 2013 Not Available [facility] 1 19:08:41 Open wound of finger 151213976 Completed 201211/25/2013 RECORDED 11/12/19 13 10:15AM BY STEFANIA NEWELL MA, ANNOTATI ON/ADDEN DUM Not Available [facility] 4 13:25:58 Low back pain 813093552 Active 2013 Not Available [facility] 1 19:08:41 Single major depressi ve episode Active 2013 Not Available [facility] 1 19:08:41 Renewal of prescrip tion Completed 201211/25/2013 RECORDED 08/24/19 13 2:49PM BY STEFANIA NEWELL MA, ANNOTATI ON/ADDEN DUM Not Available [facility] 4 13:25:58 Influenz a vaccine needed 16256241505 06 Completed 201011/25/2013 DATE: 02/04/20 11; RECORDED 04/09/20 12 1:57PM BY STEFANIA NEWELL MA, ANNOTATI ON/ADDEN DUM Not Available [facility] 4 13:25:58 Nerve, plexus and root disorder s Completed 201111/25/2013 RECORDED 04/09/20 12 1:57PM BY STEFANIA NEWELL MA, ANNOTATI ON/ADDEN DUM Not Available [facility] 4 13:25:58 Nocturia 104260754 Active 2013 STORY: PRIOR WORKUP FOR URINARY RETENTIO N ABOUT 2007. NOTES 3X PER NIGHT NOCTURIA Not Available [facility] 1 19:08:41 Patient status finding 224370014 Completed 201305/12/2016 CHANDA Scott [facility] 6 11:20:47 Morbid obesity 018319346 Active 2013 Not Available [facility] 1 19:08:41 Screenin helena finn Completed 201308/03/2014 RECORDED 09/02/19 14 2:40PM BY DILLAN JAMISON MD, OFFICE VISIT Dillan Jamison MD [address], [place], [address] , [facility] 5 14:23:46 Disorder of upper respirat ory system 913219659 Completed 201308/03/2014 RECORDED 09/02/19 14 1:27PM BY STEFANIA NEWELL MA, OFFICE VISIT Dillan Jamison MD [address] [facility] [address], [place], [address] , [facility] 5 14:23:46 Inflamma tion of sacroili ac joint 34931449 Completed 201111/25/2013 RECORDED 01/04/20 12 2:55PM BY STEFANIA NEWELL MA, ANNOTATI ON/ADDEN DUM Not Available [facility] 4 13:25:59 Administ ration of diphther ia and tetanus vaccine Completed 201211/25/2013 RECORDED 07/03/19 13 3:07PM BY STEFANIA NEWELL MA, ANNOTATI ON/ADDEN DUM Not Available [facility] 4 13:25:59 Periapic al abscess without sinus tract Completed 201211/25/2013 RECORDED 01/08/20 13 2:16PM BY STEFANIA NEWELL MA, ANNOTATI ON/ADDEN DUM Not Available [facility] 4 13:25:59 Urinary system finding 148235906 Completed 201011/25/2013 RECORDED 02/06/20 11 7:43PM BY DILLAN JAMISON MD, ANNOTATI ON/ADDEN DUM Not Available [facility] 4 13:25:59 Problem Notes None recorded. Procedures Surgical History Date Name Laterality Status Provider Name and Address Organization Details Recorded Time 3 procedure on knee completed Kalpana Henriquez MA [facility] 11/02/2022 14:49:16 6 Colonoscopy completed Sedawinter Burnett [facility] 06/21/2015 14:07:56 Other completed Carmella [facility] 08/03/2014 11:03:55 Other completed Carmella Levinestacia [facility] 08/03/2014 11:03:55 Imaging Results Imaging Date Name Status LastModified by Organization Details LastModified Time 01/31/2021 electrocardiogram completed [email or web address] In-Offi ce Order Internal Use Only DO Not Attach Compendium DO Not Attach Compendium, Do Not Delete/merge, [id number] 03/13/2022 14:25:40 01/31/2021 electrocardiogram completed Informa tion not available 01/31/2021 15:05:45 01/31/2021 electrocardiogram completed Informa tion not available 01/31/2021 15:05:45 Procedure Notes None recorded. Medical Equipment None Reported. Allergies No known drug allergies Medications Name Sig Start Date Stop Date Status Note LastModified by Organization Details LastModified Time carisopro dol 350 mg tablet TAKE 1 TABLET BY MOUTH TWICE A DAY DIRECTED 2023 active Not Available Not Available Not Avai lable amoxicill in 500 mg capsule 08/02 completed Not Available Not Available Not Available azithromy yonny 250 mg capsule DAILY DIRECTED 07/03 completed RECORDED 07/03/19 13 3:12PM BY STEFANIA NEWELL MA, OFFICE VISIT;2 TABS DAY ONE THEN 1 TAB DAILY #6 Not Available Not Available Not Available fentanyl 50 mcg/hr transderm al patch EVERY 72 HOURS 08/01 completed RECORDED 08/02/19 12 8:06AM BY DILLAN JAMISON MD, MEDICATI ON AUTO-MAURILIO CTIVATIO N; Not Available Not Available Not Available bupropion HCl SR 150 mg tablet,12 hr sustained -release TAKE 1 TABLET BY MOUTH TWICE A DAY active Not Available Not Available No t Available prednison e 10 mg tablet 6 tabs x 3d, 5 tabs x 3d, 4 tabs x 3d, 3 tabs x 3d, 2 tabs x 3d, 1 tab x 3d. 12/16 completed Not Available Not Available Not Available doxycycli ne hyclate 100 mg capsule Take 1 capsule twice a day by oral route for 10 days. 12/16 completed Not Available Not Available Not Available clindamyc in HCl 300 mg capsule TAKE 1 CAPSULE BY MOUTH EVERY 6 HOURS 01/31 completed Not Available Not Available Not Available citalopra m 40 mg tablet TAKE 1 TABLET BY MOUTH EVERY DAY 2023 active Not Available Not Available Not Avai lable sildenafi l 50 mg tablet TAKE 1 TABLET BY MOUTH EVERY DAY NEEDED active Not Available Not Available No t Available cetirizin e 10 mg tablet TAKE 1 TABLET EVERY DAY 12/16 completed Not Available Not Available Not Available azithromy yonny 250 mg tablet QD active Not Available Not Available No t Available clindamyc in HCl 150 mg capsule TAKE (2) TWO CAPSULES NOW THEN (1) ONE CAPSULE (150 MG) BY ORAL ROUTE EVERY 6 HOURS 03/13 completed Not Available Not Available Not Available penicilli n V potassium 500 mg tablet THREE TIMES DAILY 12/30 completed RECORDED 01/04/20 13 3:52PM BY DILLAN JAMISON MD, MEDICATI ON AUTO-MAURILIO CTIVATIO N; Not Available Not Available Not Available chlorthal idone 50 mg tablet TAKE 1 TABLET BY MOUTH EVERY DAY 2023 active Not Available Not Available Not Avai lable ciproflox acin 500 mg tablet TAKE 1 TABLET BY MOUTH EVERY 12 HOURS DIRECTED FOR 7 DAYS 11/04 completed Not Available Not Available Not Available oxycodone 15 mg tablet FOUR TIMES DAILY 03/02 completed RECORDED 03/14/20 13 11:22AM BY DILLAN JAMISON MD, MEDICATI ON AUTO-MAURILIO CTIVATIO N;PRESCR IPTION 3 OF 3. DO NOT FILL BEFORE 04/04/20 13. DURATION OF TREATMEN T: INDEFINI TE. LAST OFFICE VISIT IS DATE OF PRESCRIP TION. Not Available Not Available Not Available meloxicam 7.5 mg tablet Take 1 tablet twice a day by oral route as directed for 30 days. 12/16 completed Not Available Not Available Not Available Fluticaso ne Propionat e (Inhal) 50 mcg/BLIST inhl powd EACH SIDE, DAILY 11/21 completed RECORDED 11/22/19 13 1:07PM BY MARCO A LEONG MD, MEDICATI ON AUTO-MAURILIO CTIVATIO N; Not Available Not Available Not Available lorazepam 0.5 mg tablet Take 1 tablet every 6 hours by oral route as needed. 12/16 completed Not Available Not Available Not Available fentanyl 100 mcg/hr transderm al patch EVERY 72 HOURS active RECORDED 03/02/20 11 4:33PM BY LEA CHU ON/ADDSEVERINO DUM;DR FORDE Not Available Not Available Not Available oxycodone -acetamin ophen 10 mg-325 mg tablet EVERY 4 HRS PRN active RECORDED 03/02/20 11 3:57PM BY LEA CHU ON/ADDEN DUM;DR FORDE Not Available Not Available Not Available amlodipin e 10 mg tablet TAKE 1 TABLET BY MOUTH EVERY DAY 2023 active Not Available Not Available Not Avai lable benzonata te 100 mg capsule Take 1 capsule 3 times a day by oral route for 7 days. 12/16 completed Not Available Not Available Not Available pantopraz ole 40 mg tablet,de layed release TAKE 1 TABLET BY MOUTH EVERY DAY 2023 active Not Available Not Available Not Avai lable naproxen sodium 550 mg tablet 04/23 completed 1 po qd Not Available Not Available Not Available prednison e 50 mg tablet TAKE 1 TABLET BY MOUTH EVERY DAY FOR 5 DAYS 01/31 completed Not Available Not Available Not Available polymyxin B sulfate 10,000 unit-trim ethoprim 1 mg/mL eye drops active Not Available Not Available No t Available Tarka 4 mg-240 mg tablet, extended release 1 TAB DAILY 05/20 completed RECORDED 05/20/19 11 4:20PM BY DILLAN JAMISON MD, OFFICE VISIT;30 TABS Not Available Not Available Not Available valsartan 320 mg tablet Please specify directio ns, refills and quantity active Not Available Not Available No t Available docusate sodium 100 mg capsule TWO TIMES DAILY 05/20 completed RECORDED 05/20/19 11 3:35PM BY STEFANIA NEWELL MA, OFFICE VISIT;DR FORDE Not Available Not Available Not Available Astelin 137 mcg (0.1 %) nasal spray EACH SIDE, 2 TIMES A DAY 07/03 completed RECORDED 07/03/19 13 3:12PM BY STEFANIA NEWELL MA, OFFICE VISIT; Not Available Not Available Not Available diclofena c sodium 75 mg tablet,de layed release TAKE 1 TABLET BY MOUTH THREE TIMES A DAY 03/13 completed Not Available Not Available Not Available hydroxyzi ne HCl 25 mg tablet TAKE 1 TABLET(S ) 3 TIMES A DAY BY ORAL ROUTE NEEDED FOR 5 DAYS. 09/10 completed Not Available Not Available Not Available fentanyl 25 mcg/hr transderm al patch EVERY 72 HOURS 03/02 completed RECORDED 03/14/20 13 11:22AM BY DILLAN JAMISON MD, MEDICATI ON AUTO-MAURILIO CTIVATIO N;PRESCR IPTION 3 OF 3. DO NOT FILL BEFORE 04/12/20 13. DURATION OF TREATMEN T: INDEFINI TE. LAST OFFICE VISIT IS DATE OF PRESCRIP TION. Not Available Not Available Not Available levofloxa yonny 500 mg tablet DAILY 05/29 completed RECORDED 07/11/19 12 1:07PM BY DILLAN JAMISON MD, MEDICATI ON AUTO-MAURILIO CTIVATIO N; Not Available Not Available Not Available methylpre dnisolone 4 mg tablets in a dose pack use as directed 12/16 completed Not Available Not Available Not Available albuterol sulfate HFA 90 mcg/actua tion aerosol inhaler Inhale 2 puffs every 4 hours by inhalati on route. 03/13 completed Not Available Not Available Not Available ketoconaz ole 2 % topical cream APPLY TWICE A DAY TO AFFECTED UPPER EXTREMIT IES AND UPPER CHEST FOR 4 WEEKS NEEDED 01/31 completed Not Available Not Available Not Available lisinopri l 40 mg tablet TAKE 1 TABLET EVERY DAY 12/16 completed Not Available Not Available Not Available losartan 100 mg tablet TAKE 1 TABLET BY MOUTH EVERYDAY AT BEDTIME 2023 active Not Available Not Available Not Avai lable fluticaso ne propionat e 50 mcg/actua tion nasal spray,obey pension INHALE 2 SPRAYS INTO EACH NOSTRIL ONCE DAILY NEEDED active Not Available Not Available No t Available cholecalc iferol (vitamin D3) 125 mcg (5,000 unit) capsule TAKE 1 CAPSULE BY MOUTH EVERY DAY 03/13 completed Not Available Not Available Not Available loratadin e 10 mg tablet QD 12/07 completed RECORDED 12/24/19 11 12:46PM BY DILLAN JAMISON MD, MEDICATI ON AUTO-MAURILIO CTIVATIO N; Not Available Not Available Not Available amoxicill in 875 mg-potass ium clavulana te 125 mg tablet TWO TIMES DAILY 05/10 completed RECORDED 05/11/20 11 4:23PM BY DILLAN JAMISON MD, MEDICATI ON AUTO-MAURILIO CTIVATIO N; Not Available Not Available Not Available metaxalon e 800 mg tablet Take 1 tablet 3 times a day by oral route for 5 days. active Not Available Not Available No t Available bupropion HCl XL 300 mg 24 hr tablet, extended release Take 1 tablet every day by oral route for 30 days. 05/06 completed Not Available Not Available Not Available eszopiclo ne 3 mg tablet QHS / HS 01/22 completed RECORDED 01/23/20 08 8:15AM BY STEFANIA NEWELL MA, OFFICE VISIT; Not Available Not Available Not Available fentanyl 12 mcg/hr transderm al patch EVERY THREE DAYS 03/02 completed RECORDED 03/02/20 11 4:32PM BY MARSHA [facility]/KEENAN FLOWERS;PRES CRIPTION 1 OF 3. Not Available Not Available Not Available pregabali n 150 mg capsule TWO TIMES DAILY 05/20 completed RECORDED 05/20/19 11 4:18PM BY DILLAN JAMISON MD, OFFICE VISIT;DR CH Not Available Not Available Not Available clonidine QHS / HS 01/22 completed RECORDED 01/23/20 08 8:15AM BY STEFANIA NEWELL MA, OFFICE VISIT; Not Available Not Available Not Available Flonase TWO TIMES DAILY 07/03 completed RECORDED 07/03/19 13 3:12PM BY STEFANIA NEWELL MA, OFFICE VISIT;1 PUFF EACH NOSTRIL TWO TIMES A DAY Not Available Not Available Not Available cane LIFETIME 12/09 completed RECORDED 02/04/20 09 1:02PM BY MARCO A LEONG MD, MEDICATI ON AUTO-MAURILIO CTIVATIO N; Not Available Not Available Not Available MoviPrep 100 gram-7.5 gram-2.69 1 gram oral powder packet 05/12 completed Not Available Not Available Not Available buprenorp antonella 8 mg-naloxo ne 2 mg sublingua l film PLACE 2 AND 1/2 FILM UNDER THE TONGUE EVERY DAY active Not Available Not Available No t Available Vitals Date Recorded Body height Body mass index (BMI) Body weight Heart rate Oxygen saturation Oxygen saturation in Arterial blood by Pulse oximetry Body temperature Systolic blood pressure Diastolic blood pressure Provider Name and Address Organization Details Last Updated DateTime 1 180.34 cm 43.5 kg/m2 584223. 82 g 80 /min 98 % 98 % 98.42 [degF] 139 mm[Hg] 90 mm[Hg] Halina Diane MA [facility] 1 14:46:01 Date Recorded Body height Body mass index (BMI) Body weight Heart rate Oxygen saturation Oxygen saturation in Arterial blood by Pulse oximetry Systolic blood pressure Diastolic blood pressure Provider Name and Address Organization Details Last Updated DateTime 2 180.34 cm 43.7 kg/m2 192846. 41 g 48 /min 95 % 95 % 113 mm[Hg] 77 mm[Hg] Lazara Domínguez [facility] [place] 2 13:49:34 Date Recorded Body height Body mass index (BMI) Body weight Heart rate Oxygen saturation Oxygen saturation in Arterial blood by Pulse oximetry Body temperature Systolic blood pressure Diastolic blood pressure Provider Name and Address Organization Details Last Updated DateTime 3 180.34 cm 46.9 kg/m2 733703. 04 g 60 /min 97 % 97 % 97.9 [degF] 127 mm[Hg] 64 mm[Hg] Klapana Henriquez MA [facility] 3 14:45:48 Date Recorded Body height Heart rate Oxygen saturation Oxygen saturation in Arterial blood by Pulse oximetry Body temperature Systolic blood pressure Diastolic blood pressure Provider Name and Address Organization Details Last Updated DateTime 4 180.34 cm 94 /min 95 % 95 % 97.8 [degF] 121 mm[Hg] 72 mm[Hg] Wendy Tyler LPN [facility] 4 13:53:54 Date Recorded Body height Body mass index (BMI) Body weight Heart rate Oxygen saturation Oxygen saturation in Arterial blood by Pulse oximetry Body temperature Systolic blood pressure Diastolic blood pressure Provider Name and Address Organization Details Last Updated DateTime 4 180.34 cm 47.4 kg/m2 224720. 41 g 58 /min 95 % 95 % 96.5 [degF] 152 mm[Hg] 91 mm[Hg] Angelique Williamson MA [facility] 4 13:11:35 Date Recorded Systolic blood pressure Diastolic blood pressure Provider Name and Address Organization Details Last Updated DateTime 11/05/2023 144 mm[Hg] 82 mm[Hg] Kings Cardoso PA-C [address] [address], [place], [address], [facility] 11/05/2023 13:50:24 Social History Question Answer Notes LastModified by Organizat ion Details LastModified Time Tobacco Smoking Status Never Smoker Carmella person, [facility] 08/03/2014 13:46:03 Do You Have An Advance Directive? Yes [facility] [email or web address] Information not available 03/13/2022 What Is Your Level Of Alcohol Consumption? None Information not available 02/01/2015 Is Blood Transfusion Acceptable In An Emergency? Yes Information not available 02/01/2015 What Is Your Level Of Caffeine Consumption? Moderate 2 Per Day Information not available 02/01/2015 How Much Tobacco Do You Chew? None Information not available 02/01/2015 Are You Currently Employed? Yes Information not available 02/01/2015 What Type Of Diet Are You Following? REGULAR Information not available 02/01/2015 Which Illicit Or Recreational Drugs Have You Used? None Information not available 02/01/2015 Do You Or Have You Ever Used E-cigarettes Or Vape? 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 With Others (Kaitlynn) And 3 Kids [email or web address] Information not available 03/13/2022 Do You Take Precautions To Prevent Distracted Driving? Yes Information not available 02/01/2015 How Often Do You Need To Have Someone Help You When You Read Instructions, Pamphlets, Or Other Written Material From Your Doctor Or Pharmacy? Never Information not available 02/01/2015 Have You Served In The ? No Information not available 05/12/2016 Have You Or Anyone In Your Household Had Any Of The Following Symptoms In The Last 14 Days: Sore Throat, Cough, Chills, Body Aches For Unknown Reasons, Shortness Of Breath For Unknown Reasons, Loss Of Smell, Loss Of Taste, Fever At Or Greater Than 100 Degrees Fahrenheit? Yes Information not available 04/23/2020 Are You Or Anyone In Your Household A Health Care Provider Or Emergency Responder? No Information not available 04/23/2020 To The Best Of Your Knowledge Have You Been In Close Proximity To Any Individual Who Tested Positive For COVID-19? Yes Information not available 04/23/2020 What Was The Date Of Your Most Recent Tobacco Screening? 11/05/2023 [email or web address] Information not available 11/05/2023 How Many Children Do You Have? 3 Information not available 02/01/2015 Do You Use Protection During Sex? No Information not available 02/01/2015 Seat Belts Used Routinely Yes [email or web address] Information not available 03/13/2022 Are You Sexually Active? Yes Information not available 02/01/2015 Smoke Alarm In Home Yes [email or web address] Information not available 03/13/2022 At What Age Did You Start Smoking Tobacco? 0 Information not available 02/01/2015 Are You Passively Exposed To Smoke? No Information not available 02/01/2015 Do You Or Have You Ever Used Smokeless Tobacco? Never Used Smokeless Tobacco Information not available 03/12/2019 How Much Tobacco Do You Smoke? No Information not available 02/01/2015 Do You Use Sunscreen Routinely? No Information not available 02/01/2015 How Many Years Have You Smoked Tobacco? 0 Information not available 02/01/2015 Sex: Unknown Functional Status Question Answer Note LastModified by Organizat ion Details LastModified Time Are you able to care for yourself? Yes Information not available 02/01/2015 What is your exercise level? Moderate swimming 3 x week Information not available 02/01/2015 Mental Status None recorded. Family History Relationship Description Onset Age of this Age Resolved Age Notes LastModified by Organization Details LastModified Time Mother Diabetes mellitus [facility] Not available 02/01/2015 13:41:13 Medical History No medical history recorded. Immunizations Vaccine Type Date Status Note Provider Nam e and Address Organization Details Recorded Time Tdap 3 completed Not Available [facility] 07/29/2020 19:08:41 Influenza, split virus, quadrivalent , PF 7 cancelled patient objection Not Available [facility] 05/31/2019 02:22:07 Past Encounters Encounter ID Performer Location Encounter Start Date Encounter Closed Date Diagnosis/Indication Diagnosis SNOMED-CT Code Diagnosis ICD10 Code Diagnosis Note [id number] [address] [address] [facility] [place] [address] 10/03/2006 00:00:00 3822 auto[address] [address] [place] [address] 01/03/2007 00:00:00 3823 [employer] erce [address] [facility] [place] [address] 10/30/2007 00:00:00 [address] [place] [address] 01/23/2008 00:00:00 [address] [place] [address] 07/07/2008 00:00:00 3826 [address] [address]ce [address] [facility] [address] [place] [address] 06/07/2009 00:00:00 3827 autoEComm erce [address] [facility] [address] [place] [address] 07/06/2009 00:00:00 3828 autoEComm erce [address] [facility] [address] [place] [address] 08/31/2009 00:00:00 3829 autoEComm erce [address] [facility] [place] [address] 11/29/2009 00:00:00 3830 autoEComm erce [address] [facility] [place] [address] 02/22/2010 00:00:00 3831 autoEComm erce [address] [facility] [place] [address] 05/20/2010 00:00:00 3832 [address]Comm erce [address] [facility] [address] [place] [address] 08/17/2010 00:00:00 3833 autoEComm erce [address] [facility] [address] [place] [address] 09/13/2010 00:00:00 3834 autoEComm erce [address] [facility] [place] [address] 11/07/2010 00:00:00 3835 [address] [place] [address] 02/03/2011 00:00:00 3836 autoEComm erce [address] [facility] [place] [address] 04/26/2011 00:00:00 3837 [address] [place] [address] 07/18/2011 00:00:00 3838 [address] [place] [address] 08/02/2011 00:00:00 3839 [address] [place] [address] 10/24/2011 00:00:00 [address] [place] [address] 01/04/2012 00:00:00 [id number] [address] [place] [address] 01/17/2012 00:00:00 [id number] autoEComm erce [address] [facility] [address] [place] [address] 04/09/2012 00:00:00 [id number] autoEComm erce [address] [facility] [address] [place] [address] 05/27/2012 00:00:00 3844 autoEComm erce [address] [facility] [address] [place] [address] 07/03/2012 00:00:00 3845 autoEComm erce [address] [facility] [place] [address] 08/23/2012 00:00:00 3846 autoEComm erce [address] [facility] [address] [place] [address] 11/12/2012 00:00:00 3847 autoEComm erce [address] [facility] [address] [place] [address] 01/07/2013 00:00:00 3848 autoEComm erce [address] [place] [address] 01/31/2013 00:00:00 3849 autoEComm erce [address] [facility] [address] [place] [address] 07/14/2013 00:00:00 3850 [facility]ce [address] [facility] [place] [address] 09/01/2013 00:00:00 [id number] Catrachita Biggs Main Office [address] [address] [place] [address] 08/03/2014 13:35:22 08/03/2014 14:20:22 Essential hypertension 28223385 Hyperglycemia 30603423 Hyperlipidemia 55116250 Increased liver function 59231430 Body mass index 40+ - severely obese 758207653 Impotence 614687632 [id number] Dillan Jamison MD Main Office [address] [address] [place] [address] 02/01/2015 12:58:29 02/01/2015 14:14:23 Adult health examination 476664973 Essential hypertension 89131654 Screening for malignant neoplasm of colon 275476204 Screening for malignant neoplasm of prostate 260184631 Chronic pain syndrome 503866685 [id number] Dillan Jamison MD Main Office [address] [address] [place] [address] 05/12/2016 11:16:41 05/12/2016 12:14:05 Hyperlipidemia 80984751 E78.5 Fatigue 22337424 R53.83 Allergic reaction 309000 005 T78.40XD Essential hypertension 48676361 I10 [id number] Dillan Jamison MD Main Office [address] [address] [place] [address] 07/17/2016 11:20:23 07/17/2016 12:07:12 Essential hypertension 19621411 I10 Body mass index 40+ - severely obese 482010214 E66.01 Z68.42 [id number] Dillan Jamison MD Main Office [address] [address] [place] [address] 09/11/2016 11:05:46 09/11/2016 12:31:16 Adult health examination 781611300 Z00.00 Immunization refused 275 747897 Z28.21 Hyperlipidemia 44917465 E78.5 Fatigue 79636736 R53.83 Body mass index 40+ - severely obese 089508684 E66.01 Z68.42 [id number] Dillan Jamison MD Main Office [address] [address] [place] [address] 08/27/2017 13:50:43 08/27/2017 14:38:53 Low back pain 102435439 M54.5 low back pain since sunday, no radicular sx. patient declines opioid pain meds. continue tylenol, soma, diclofenac as prescribed . stop aleve and start meloxicam as directed. heat to area 4 times daily x 20 mins at a time. gentle stretching as tolerated. XR today. call/ return for worsening sx. [id number] Dillan Jamison MD Main Office [address] [address] [place] [address] 09/10/2017 12:55:29 09/10/2017 14:06:35 Adult health examination 835039275 Z00.00 Body mass index 40+ - severely obese 846557465 Z68.41 encouraged pt to cont to lose wt - resume swimming, advance as elvia - see below re: lbp Gastroesop hageal reflux disease 504682826 K21.9 cont ppi as dir Chronic pain syndrome 37 6130622 G89.4 h/o abuse of pain pills yrs ago - cont meds as per suboxone clinic, pending f/u c pssp, cont soma prn - see below Impaired f asting glycemia 487333265 R73.01 Essential hypertension 94514820 I10 stable, cont meds as dir Low back pain 945944712 M54.5 he never picked up his rtw note - rec'd just today - wants to go back light duty starting tomorrow, has been oow x 2 wks, pending see pssp ? 1-2 wks, cont aquatherap y/resume swimming as elvia [id number] Sol Mcgraw Main Office [address] [facility] [address] [place] [address] 06/28/2018 11:06:08 06/28/2018 12:10:50 Fever 987573434 R50.9 rapid flu negative, no fever for 2 days now. Continue to monitor. Acute gastroenteritis 69 063627 K52.9 Sx seem better today, will likely improve over the weekend. Important to keep hydrated, rest, OOW until Sunday, advance diet slowly. Clear fluids today and bland solids if hungry. Call if worsening Mild dehydration 3707388 119 108 E86.0 Rest, push fluids, gatorade, check labs and if normal will continue care at home. If labs abnormal would consider in home hydration with dispatch. Hold Bp meds until tomorrow as BP ok today. Hold chlorthali done until Sunday. [id number] Sol Murrellamy Main Office [address] [address] [place] [address] 08/02/2018 11:30:59 08/02/2018 12:35:19 Cough 45883759 R05 chest xray to rule out pneumonia. Will get started on medrol and doxycyclin e in the interim. ADDENDUM : CXR neg, left message for pt Rest, hydration, call if not improving, sooner if worsening Wheezing 14356759 R06.2 medrol forbroncho spasm, side effects reviewed Acute sinusitis 98744882 J01.90 steam, flonase, sinus nasal rinses, keep hydrated, start antbiotic and steroid. [id number] Emperatriz messer Main Office [address] [address] [place] [address] 08/07/2018 10:46:44 08/07/2018 12:26:25 Wheezing 14091851 R06.2 unable to do vika, pt feels better after updraft treatment Persistent cough 1152605 [address] Fanny Justice, will try longer prednisone taper to help with wheezing, side effects reviewed, lab today, unable to do vika. Will rest and call or ED if worsening. Ca;ll with update in a few days, sooner prn. Malaise and fatigue 2717 40670 R53.83 Pt with unusual fatigue, check labs today. Concerned with clamminess and sweating. If not improving would do chest and abd [place] [id number] Kings Cardoso PA-C Main Office [address] [address] [place] [address] 12/16/2018 13:26:30 12/16/2018 14:16:30 Essential hypertension 08509177 I10 stable bp, cont meds as dir, check bmp [id number] Kings Cardoso PA-C Main Office [address] [address] [place] [address] 03/04/2019 10:33:25 03/04/2019 11:41:03 Fatigue 95869257 R53.83 will check metabolic w/u -- ? likely d/t guadalupe given morbid obesity / ? d/t depression ---- see below Anxiety 94761364 F41.9 will set up c bhn, pt defers meds Snoring 61444502 R06.83 Low back pain 551236077 M54.5 about 50-75% better now, encouraged pt to see pssp next wk, cont aquatherap y/resume swimming as elvia Morbid obesity 594277800 E66.01 encouraged pt to lose wt thru diet and ex Impaired f asting glycemia 495605713 R73.01 Hyperlipidemia 09894742 E78.5 pt fasting today Body mass index 40+ - severely obese 300314524 E66.01 Z68.41 encouraged pt to cont to lose wt - resume swimming, advance as elvia - see below re: lbp [id number] Kings Cardoso PA-C Main Office [address] [facility] [address] [facility] [place] [address] 03/12/2019 09:15:11 03/12/2019 10:26:40 Fatigue 98078880 R53.83 labs normal, likely d/t depression - see below Liver enzy mes level above reference range 239802775 R74.8 likely d/t fatty liver dz as pt has gained wt - rec wt loss thru low carb diet and increased aerobic ex Impaired f asting glycemia 918767283 R73.01 but no pre-dm c a1c 5.5 Snoring 78625024 R06.83 pending sleep study - encouraged pt to speak c them to move up on cx list Major depr essive disorder 698918890 F32.1 has been on same dose of wellbutrin x > 5yrs - will titrate up dose a little - take 300mg in am, 150 mg in pm Anxiety 65584680 F41.9 pending see n [id number] Kings Cardoso PA-C Main Office [address] [facility] [address] [place] [address] 03/27/2019 13:35:57 03/27/2019 14:35:42 Major depressive disorder 016012326 F32.1 cont max dose of wellbutrin - allow a little more time for it to 'kick in' - f/u 3 wks, sooner prn f/u c bhn later today - ? if ocd and / or bipolar trait may be complicati ng the picture - ? alternativ e diagnosis may streamline to better treatment - ? if needs psychiatri c evaluation [id number] Kings Cardoso PA-C Main Office [address] [address] 04/17/2019 11:25:38 04/17/2019 13:39:35 Major depressive disorder 986311391 F32.1 will titrate off wellbutrin as no sig help, in fact may even be a little worse - will give trial of changeover to cont f/u c bhn - ? if ocd and / or bipolar trait may be complicati ng the picture - ? alternativ e diagnosis may streamline to better treatment - ? if needs psychiatri c evaluation update 04.17.19 - [place] get [place] [facility] [place] begin trial of celexa 25 minute office visit with greater than 50% of the visit face-to-fa ce with the patient and/or family providing counseling and/or coordinati on of care. [id number] Kings Cardoso PA-C Main Office [address] [address] 05/06/2019 13:30:11 05/06/2019 14:23:40 Major depressive disorder 943765857 F32.1 sig better on celexa - cont as dir cont f/u c bhn - ? if ocd and / or bipolar trait may be complicati ng the picture - ? alternativ e diagnosis may streamline to better treatment encouraged pt to get psych [place] [facility] [place] - they mailed a letter to him may rtw 1.2.20 25 minute office visit with greater than 50% of the visit face-to-fa ce with the patient and/or family providing counseling and/or coordinati on of care. [id number] [facility] [address] [address] 04/23/2020 12:50:18 04/23/2020 14:43:48 Exposure to viral disease 2986328585 25442 Z03.818 [id number] Kings Cardoso PA-C Main Office [address] [place] [address] 01/31/2021 14:18:40 01/31/2021 15:21:02 Pre-surgery evaluation 881377958 Z01.818 Bimalleola r fracture of ankle 946394763 S82.842A Essential hypertension 03317572 I10 stable ~ bp, cont meds as dir Hyperlipidemia 14536350 E78.5 Major depr essive disorder 843926894 F32.1 stable lately, cont med as dir Impaired f asting glycemia 468595609 R73.01 but no pre-dm c a1c 5.5 - will recheck [id number] Kings Cardoso PA-C Main Office [address] [address] [place] [address] 03/13/2022 13:25:55 03/13/2022 14:34:25 Essential hypertension 03171303 I10 stable bp, cont meds as dir Single honorio or depressive episode 485224895 F32.4 better lately - stable - cont meds as dir Varicose v eins of lower extremity 39871437 I83.93 L>R LE - consider comp socks Impaired f asting glycemia 194093413 R73.01 but no pre-dm c a1c 5.5 - will recheck Hyperlipidemia 41722679 E78.5 Subclinica l hypothyroidism 25224315 E02 [id number] Kings Cardoso PA-C Main Office [address] [address] [place] [address] 11/02/2022 14:26:21 11/02/2022 15:44:17 Adult health examination 532145662 Z00.00 colon utd Pain of le ft ankle joint 0177748697 1841463 M25.572 s/p sx ~ 1.5 yrs ago - had PT, advised pt to f/u c themrec swimming, biking, elliptical declines gbn at this time Chronic pain syndrome 37 1064026 G89.4 h/o abuse of pain pills yrs ago - cont meds as per suboxone clinic, cont prn soma Major depr essive disorder 943086249 F32.1 stable lately, cont med as dir, has therapist at suboxone clinic Body mass index 40+ - severely obese 138541161 E66.01 Z68.41 encouraged pt to cont to lose wt - resume swimming, advance as elvia 6.23 - rec see nutritioni st, if no sig wt loss then consider trial of wegovy if coveredcon t plenty of walking/co nsider HIIT, consider [email or web address] v, rec increase sleep to 7-8 hours/nigh t [id number] LEONARDA PERKINS Main Office [address] [facility] [address] [facility] [address] 08/10/2023 13:39:17 08/10/2023 14:11:50 Cloudy urine 8564487 R82.90 x3 months-no hematuria, changes in urinary frequency, dysuria, abdominal pain, sob, chest pain-last A1C of 5.5 (10/2022)-d eclines STD panel; pt has no concerns and understand s risks-will further evaluate with A1c, kidney functions, and urinalysis Impaired f asting glycemia 003927280 R73.01 [id number] Kings Cardoso PA-C Main Office [address] [facility] [address] [place] [address] 11/05/2023 12:58:44 11/05/2023 14:10:56 Adult health examination 870228383 Z00.00 colon utdLast tetanus 2012, requires update - rec go to local pharmacy Chronic pain syndrome 37 1965596 G89.4 h/o abuse of pain pills yrs ago - cont meds as per suboxone clinic, cont prn soma Essential hypertension [id number] I10 bp stable at home 120-127/60 -67. BP elevated on initial check, improved to 144/82 on recheck - but pt admits to having a large coffee just before coming in = cont meds as dir, but change chlorthali done to a.m. Gastroesop hageal reflux disease [id number] K21.9 cont ppi as dir, uses PRN, stable Hyperlipidemia [id number] E78.5 Stable on diet alone as of last year. Will recheck. Impaired f asting glycemia [id number] R73.01 but no pre-dm c a1c 5.5 - will recheck Increased liver function [id number] R94.5 Normal levels as of last year. Major depr essive disorder [id number] F32.4 stable lately, cont med as dir, has therapist at suboxone clinic. PHQ-9 0. Subclinica l hypothyroidism [id number] E02 TSH normal one year ago. Will repeat Obstructiv e sleep apnea syndrome [id number] G47.33 On CPAP x 2 months, stable Body mass index 40+ - severely obese [id number] E66.01 Z68.41 encouraged pt to cont to lose wt - resume swimming, advance as elvia 6.23 - rec see nutritioni st, if no sig wt loss then consider trial of wegovy if coveredcon t plenty of walking/co nsider HIIT, consider myplate.go v, rec increase sleep to 7-8 hours/nigh t 6.24 - see above - encouraged pt to lose wt thru diet and exercise. Discussed Wegovy, he prefers to wait until the end of summer. Pain of le ft ankle joint [id number] M25.572 s/p sx ~ 1.5 yrs ago - had PT, advised pt to f/u c themrec swimming, biking, elliptical declines gbn at this time 6.24 - cont f/u c ortho, use comp socks, orthotic - consider vein specialist in future if worse Health Concerns Section Related Observation LastModified by Organization Detai ls LastModified Time None Recorded Concern Status LastModified by Organization Details LastModified Time None Recorded Advance Directives Directive Y: HCP Payers Encounter Date Sequence Insurance Name Policy Number Policy Flores Covered Member ID Flores Member ID Guarantor Name 01/31/2021 1 [place] [id number] Bio [id number] [employer] 03/13/2022 1 [place] [id number] [place] [id number] [place] 11/02/2022 1 [place] [id number] [place] [id number] Jun [place] 08/10/2023 1 [place] [id number] Jun Orion [id number] [place] 11/05/2023 1 [place] [id number] Jun Sears [id number] Jun Sears Notes Date Note Type Note Provider Name and Address Organization Details Recorded Time 1 text/html pt here for pre-op L ankle 10.4.[address] Kimani Cardoso PA-C [address] [address], [place], [phone], [facility] [place] 15:17:16 2 text/html Anxiety/DepressionReported bypatient.Quality:symptoms improved Severity:denies suicidal ideations Context:no major life stressors Associated Symptoms:denies homicidal ideationsHypertension F/UReported bypatient.Associated Symptoms:no dizziness; no lightheadedness; no chest pain; no shortness of breath; no palpitations; no edema; no calf pain with exertion Lifestyle:regular exercise; limiting/avoiding salt Medications:taking medications as directed; no side effects from medication Kings Cardoso PA-C [address] [address], [place], [phone], [facility] [place] 03/13/2022 14:36:14 3 text/html here for annual pe. Kings Cardoso PA-C [address] [address], [place], [phone], [facility] [place] 11/04/2022 15:41:19 4 text/html Jun is a 62yr old M who presents for cloudy urine and foul smell x3 months. Denies of any hematuria, dysuria, increase in urinary frequency, STD concerns, sob, or chest pain. Last A1c was 5.5 (10/2022). Last creatinine was 0.7 (10/2022). Denies of any changes in bowel/urinary habits, dizziness, fatigue, or abdominal pain. LEONARDA PERKINS [address] [address], [place], [phone], [facility] [place], [place] 08/11/2023 19:38:24 4 text/html 63 yo male presenting for annual physical assessment. Colonoscopy UTD. Tetanus was last 2012, needs to be updated. He has felt well overall since his last appointment with us one year ago. BP elevated today, drank coffee this AM. Takes antihypertensives at 5 PM daily, has not taken them today. Kings Cardoso PA-C [address] [address], [place], [phone], [facility] [place] 11/05/2023 15:26:44
== END 2024-06-05 13:49 | disposition home or self-care (01) ==
PROVIDERS: Visit Provider Physician Assistant Medical
DX: E66.01 Morbid (severe) obesity due to excess calories (principal); G47.30 Sleep apnea, unspecified; R53.83 Other fatigue; G47.9 Sleep disorder, unspecified
CPT/HCPCS: 99213

== ENCOUNTER → 2024-06-05 12:58 | Outpatient (BNVA) | payer MEDICARE, BC, SELFPAY | PROVIDERS: Visit Provider Physician Assistant Medical | DX: G47.30 Sleep apnea, unspecified (principal); G47.9 Sleep disorder, unspecified; E66.01 Morbid (severe) obesity due to excess calories; R53.83 Other fatigue | CPT/HCPCS: 99212 ==